=== PATIENT | male | born 1950 | race American Indian/Alaskan Native ===

== ENCOUNTER 2016-11-21 06:58 | Day surgery (SDC) | payer MEDICARE, OTHER ==
[2016-11-21] MEDS ORDERED: ECOTRIN PO ONE (07:45)
[2016-11-21] MEDS ORDERED: NACL 0.9% 500 ML 500 ML IV SCH (08:00)
[2016-11-21 08:34] LABS: Basophils % (Auto) 0.7 % (0.0-1.8); Eosinophils % (Auto) 2.2 % (0.0-4.3); Hematocrit 43.5 % (35.5-45.6); Hemoglobin 14.7 gm/dl (11.8-15.2); Mean Corpuscular HGB Conc 34 % (32-34); Mean Corpuscular Hemoglobin 29 pg (28-32); Mean Corpuscular Volume 86 fl (84-94); Platelet Count 195 K/mm3 (140-440); Red Blood Count 5.03 M/mm3 (3.65-5.03); Red Cell Distribution Width 12.9 % (13.2-15.2); White Blood Count 4.9 K/mm3 (4.5-11.0)
[2016-11-21 08:49] LABS: Anion Gap 14 mmol/L; BUN/Creatinine Ratio 15.71; Blood Urea Nitrogen 11 mg/dL (9-20); Calcium 9.6 mg/dL (8.4-10.2); Carbon Dioxide 30 mmol/L (22-30); Chloride 101.8 mmol/L (98-107); Glucose 120 mg/dL (75-100); Potassium 4.1 mmol/L (3.6-5.0); Sodium 142 mmol/L (137-145)
[2016-11-21 09:10] LABS: INR 1.01 (0.87-1.13)
[2016-11-21] MEDS ORDERED: HEPARIN/NS 5000 UNIT/500ML(CATH LAB) 1,000 ML IR ONE (10:30)
[2016-11-21] MEDS ORDERED: NITROGLYCERIN SYRINGE 3 ML ONE (10:31)
[2016-11-21] MEDS: SUBLIMAZE ONE ×2 (10:50→11:07)
[2016-11-21] MEDS: XYLOCAINE 2% INFILTRATI ONE ×2 (10:51→11:07)
[2016-11-21] MEDS: VERSED ONE ×2 (10:51→11:07)
[2016-11-21] MEDS: HEPARIN 10,000 UNITS/10 ML ONE ×2 (10:51→11:10)
[2016-11-21] MEDS: CALAN ONE ×2 (10:51→11:10)
[2016-11-21] MEDS ORDERED: ULTRAM PO PRN (11:30)
--- NOTE | 2016-11-21 11:35 | Discharge Summary ---
Short Stay Discharge Plan Activity: advance as tolerated Weight Bearing Status: Full Weight Bearing Diet: low fat, low cholesterol, low salt, diabetic Wound: keep clean and dry Special Instructions: no heavy lifting (3 days), hold Metformin (48 hrs) Follow up with: JULIAN WELLS MD [Primary Care Provider] - 7 Days JADA SRIVASTAVA MD [Staff Physician] - 7 Days
[2016-11-21] MEDS ORDERED: NACL 0.9% 1000 ML 1,000 ML IV SCH (12:00)
[2016-11-21 13:05] VITALS: BP 132/84
--- NOTE | 2016-11-21 14:10 | Cardiac Catherization Report ---
REASON FOR PROCEDURE: The patient is preoperative for ankle surgery. Due to multiple risk factors, a Thallium stress test was done, which was abnormal with a large mostly fixed inferior wall defect. He was referred for cardiac catheterization. PROCEDURE: The patient was prepped and draped in a sterile fashion after informed consent. The right radial cath site was prepped and draped after a negative Alexander's test. The right radial artery was entered using the Seldinger technique followed by placement of a 6-[place] hydrophilic sheath. A #3.5 left Melvin catheter was used for left coronary angiography. A #4 right Melvin was used for right coronary angiography. The pigtail catheter was used for left ventricular angiography. The catheters were removed, sheath removed, and hemostasis achieved using manual compression. The patient was returned to the postprocedural unit in stable condition. There were no complications. FINDINGS: HEMODYNAMICS: Left ventricle end-diastolic pressure was 8. Ascending aortic pressure was 126/69. There was no significant pressure gradient on pullback across the aortic valve. CORONARY ANGIOGRAPHY: The left main coronary artery was angiographically normal. The left anterior descending artery and the diagonal branches were free of significant disease. The circumflex artery and its obtuse marginal branches were free of significant disease. The right coronary artery was dominant and contained mild irregularities in its proximal segment. The left ventricular systolic function was well preserved, ejection fraction 55%. CONCLUSION: 1. Mild irregularities as above, essentially, angiographically normal coronary arteries. 2. Well preserved left ventricular systolic function, ejection fraction of 55%. RECOMMENDATION: Risk factor modification and medical therapy. JOB# [id number] CA/NTS
== END 2016-11-21 14:30 | disposition home or self-care (01) ==
LOC: OPU 06:58
PROVIDERS: ATTEND Internal Medicine Cardiovascular Disease
DX: R94.39 Abnormal result of other cardiovascular function study (principal); E11.9 Type 2 diabetes mellitus without complications; E78.5 Hyperlipidemia, unspecified; Z79.01 Long term (current) use of anticoagulants; Z87.891 Personal history of nicotine dependence; Z82.49 Family history of ischemic heart disease and other diseases of the circulatory system
CPT/HCPCS: 36415; 80048; 85025; 85610; 85730; 93005; 93010; 93458; C1894; J1644; J2250; J3010; J7040; Q9967